=== PATIENT | female | born 1965 | race Caucasian/White ===

== ENCOUNTER 2020-04-03 08:19 | Emergency (ER) | payer BC ==
[~2020-04-03] VITALS: Ht 157.5 cm; Wt 87.2 kg
[2020-04-03 09:14] LABS: ABSOLUTE EOSINOPHILS 0.1 thou/uL (0.0-0.7); ABSOLUTE LYMPHOCYTES 0.2 thou/uL (0.8-5.3); ABSOLUTE MONOCYTES 0.8 thou/uL (0.0-1.2); ABSOLUTE NEUTROPHILS 7.3 thou/uL (1.6-8.1); EOSINOPHILS 1.6 %; HEMATOCRIT 42.2 % (37.0-47.0); HEMOGLOBIN 14.8 gm/dL (12.0-15.0); LYMPHOCYTES 2.1 %; MCHC 35.1 g/dL (28.0-37.0); MCV 88.3 fL (80.0-100.0); MONOCYTES 9.6 %; MPV 7.7 fl. (7.2-11.1); NUCLEATED RBCS 0 /100WBC; PLATELET COUNT* 229 thou/uL (150-400); POLYS 86.7 %; RBC 4.78 mil/uL (4.20-5.00); RDW-CV 14.2 % (10.5-14.5); WBC 8.5 thou/uL (4.0-11.0)
[2020-04-03 09:27] LABS: APTT 24.5 Seconds (25.0-31.3); PROTIME 10.4 Seconds (9.20-11.50)
[2020-04-03 09:29] LABS: CALCIUM 8.6 mg/dL (8.5-10.1); CREATININE 0.8 mg/dL (0.6-1.3); POTASSIUM 3.8 mmol/L (3.5-5.1)
[2020-04-03 09:33] LABS: ALBUMIN 3.9 g/dL (3.4-5.0); TOTAL PROTEIN 7.6 g/dL (6.4-8.2)
[2020-04-03 13:46] VITALS: BP 170/71
--- NOTE | 2020-04-03 14:47 | EKG ---
[place] [address] ELECTROCARDIOGRAM REPORT Name: CHIDI ALEJO Room: [facility]#: [id number] Admission: 04/03/20 Attend Phys: Discharge: 04/03/20 Date of : 61 Date of Service: 04/03/20 0825 Report #: [id number] THIS REPORT FOR: //name// [facility] ED Test Date: 2020-04-03 Test Time: 08:25:03 Pat Name: CHIDI ALEJO Department: Room: Gender: F Process Supervisor: MS : [id number] Requested By: Joan Aguila Order Number: [id number] MD: Trell Reyes Measurements Intervals Arnold Rate: 74 P: 42 WY: 187 QRS: 21 QRSD: 102 T: 126 QT: 385 QTc: 428 Interpretive Statements Sinus rhythm Low voltage, precordial leads Abnormal T, consider ischemia, lateral leads No previous ECG available for comparison Electronically Signed On 04-03-2020 14:45:52 CDT by Trell Reyes [email or web address] <ELECTRONICALLY SIGNED> By: Trell Reyes MD, [facility] 04/03/20 1445 0825 Trell Reyes MD, [facility] /EPI
== END 2020-04-03 13:48 | disposition home or self-care (01) ==
LOC: M.ERS 08:19
PROVIDERS: Personal Emergency Response Attendant
DX: R55 Syncope and collapse (principal); Z85.42 Personal history of malignant neoplasm of other parts of uterus